=== PATIENT | female | born 1955 | race Caucasian/White ===

== ENCOUNTER 2022-04-22 05:31 | Day surgery (SDC) | payer MEDICARE, OTHER ==
[~2022-04-22] VITALS: Ht 163 cm; Wt 70.0 kg
[~2022-04-22 05:31] MED LIST: DAILY VALUE1 EACH PO; PEPCID AC20 MG PO; SIMVASTATIN10 MG PO; SYNTHROID75 MCG PO; VIACTIV 650 MG1 EACH PO; VITAMIN D3 PO; ZYRTEC10 MG PO
[2022-04-23 06:53] LABS: BASOPHIL 0.5 % (0-2); HCT 30.5 % (37.0-47.0); HGB 9.8 g/dl (12.5-16.0); LYMPHOCYTE 18.3 % (15-48); MCH 31.5 pg (25.0-31.0); MCHC 32.1 g/dL (32.0-36.0); MCV 98.1 fL (78.0-100.0); MONOCYTE 8.2 % (0-12); MPV 11.9 fL (6.0-9.5); NEUTROPHIL 69.6 % (41-80); NRBC 0; PLT 176 K/uL (150-400); RBC 3.11 M/uL (4.20-5.40); WBC 7.4 K/uL (4.0-10.5)
[2022-04-23 06:54] LABS: BUN/CREAT RATIO (CALC) 13.9 RATIO; CREATININE 0.72 mg/dL (0.51-0.95); POTASSIUM 4.4 mmol/L (3.5-5.1)
[2022-04-23] MEDS ORDERED: XARELTO10 MG PO (08:20)
[2022-04-23] MEDS ORDERED: FEOSOL325 MG PO (08:20)
[2022-04-23] MEDS ORDERED: OXYCODONE-ACET1 EAC1 PO (08:20)
== END 2022-04-23 13:08 | disposition home or self-care (01) ==
LOC: FAS 05:31 → FMS 09:05 → FAS 04-23 13:08 → FMS 04-23 13:08
PROVIDERS: Legal Medicine
DX: M17.11 Unilateral primary osteoarthritis, right knee (principal); M21.061 Valgus deformity, not elsewhere classified, right knee; I10 Essential (primary) hypertension; E03.9 Hypothyroidism, unspecified; K21.9 Gastro-esophageal reflux disease without esophagitis; E78.5 Hyperlipidemia, unspecified; Z88.1 Allergy status to other antibiotic agents; Z88.5 Allergy status to narcotic agent; Z88.8 Allergy status to other drugs, medicaments and biological substances; Z91.013 Allergy to seafood; Z79.899 Other long term (current) drug therapy
CPT/HCPCS: 36415; 73560; 80048; 85025; 86850; 86900; 86901; 94010; 94762; 97110; 97162; 97166; 97530-GP; 97535; C1713; C1776; J0171; J0697; J1885; J2250; J2405; J2704; J2795; J3010; J7120